=== PATIENT | male | born 1940 ===

== ENCOUNTER 2019-07-18 11:44 | Outpatient (CLI) | payer OTHER ==
[~2019-07-18 11:44] MED LIST: PERCOCET 5/3251 TAB PO
== END 2019-07-18 15:00 | disposition home or self-care (01) ==
LOC: LAB 11:44
DX: C61 Malignant neoplasm of prostate (principal); I10 Essential (primary) hypertension; E06.3 Autoimmune thyroiditis; D51.1 Vitamin B12 deficiency anemia due to selective vitamin B12 malabsorption with proteinuria; R63.4 Abnormal weight loss; E03.8 Other specified hypothyroidism; D51.3 Other dietary vitamin B12 deficiency anemia; R97.0 Elevated carcinoembryonic antigen [CEA]; C25.9 Malignant neoplasm of pancreas, unspecified; E11.9 Type 2 diabetes mellitus without complications; R97.8 Other abnormal tumor markers; E78.2 Mixed hyperlipidemia; D50.8 Other iron deficiency anemias; K86.81 Exocrine pancreatic insufficiency

== ENCOUNTER 2019-09-13 08:24 | Outpatient (CLI) | payer OTHER | END 2019-09-13 08:44 | disposition home or self-care (01) | LOC: TOM 08:24 | DX: C61 Malignant neoplasm of prostate (principal); D51.1 Vitamin B12 deficiency anemia due to selective vitamin B12 malabsorption with proteinuria; D51.3 Other dietary vitamin B12 deficiency anemia; E11.9 Type 2 diabetes mellitus without complications; E78.2 Mixed hyperlipidemia; E03.8 Other specified hypothyroidism; I10 Essential (primary) hypertension; R63.4 Abnormal weight loss | CPT/HCPCS: 71260; 74177; Q9965 ==